=== PATIENT | male | born 1945 ===

== ENCOUNTER 2024-02-24 11:28 | Outpatient (AMB) | payer OTHER, SELFPAY ==
--- NOTE | 2024-02-24 11:28 | A.OFFPC_ITS ---
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 Intake Note: New patient visit Procurement Assistant Required: No Accompanied by: Daughter Allergies influenza vaccine Allergy (Unknown, Uncoded 02/24/24 11:35) Unknown nictone patches Allergy (Unknown, Uncoded 02/24/24 11:29) Rash Tobacco use date assessed: 02/24/24 Fall risk assessment: No Falls in past year Last assessed Fall Risk: 02/24/24 Dental Screening Dental Screen Date: 02/24/24 Did you have a dental visit in the last 12 months?: No Did you have a dental problem in the last 6 months where you did not have access to dental care?: No Was dental information given to patient?: Patient declined HPI HPI Comments History of Present Illness Details Patient is a 78-year-old male with a past medical history of prostate cancer diabetes, hypertension hyperlipidemia, anemia, depression presenting for follow-up. Accompanied by his daughter Cardiovascular: On amlodipine, metfoprolol, lisinopril, statin. Blood pressure is high today. He did not yet take his medications. Denies vision changes, headaches. Follows at [facility]. Last echo looked good. He has had episodes of AFib previously. DM: Generally well controlled. He continues on metformin 1000mg twice daily. On JACOB, statin. COPD: stable. Does not follow with pulmonary. No recent breathing issues History of prostate cancer-Follows with urology Colonoscopy 2022 in hospital TDap 2018 ROS CONSTITUTIONAL: Denies weight loss, fever and chills. HEENT: Denies changes in vision and hearing. RESPIRATORY: Denies SOB and cough. CV: Denies palpitations and CP GI: Denies abdominal pain, nausea, vomiting and diarrhea. : Denies dysuria and urinary frequency. MSK: Denies new myalgia and joint pain. SKIN: Denies rash and pruritus. NEUROLOGICAL: Denies headache PSYCHIATRIC: Denies recent changes in mood. PHYSICAL EXAM: GENERAL: Alert and oriented x 3. NAD EYES: EOMI. Anicteric. HENT: Moist mucous membranes. No scleral icterus. No cervical lymphadenopathy. LUNGS: Clear to auscultation bilaterally. CARDIOVASCULAR: Regular rate and rhythm. No murmur. No JVD. ABDOMEN: Soft, non-tender +bs EXTREMITIES: No edema. Non-tender. SKIN: No rashes or lesions. Warm. NEUROLOGIC: No focal neurological deficits. CN II-XII grossly intact PSYCHIATRIC: Cooperative. Appropriate mood and affect PFSH Surgical History H/O colonoscopy Family History Mother Diabetes Father Diabetes Brother Diabetes Sister Breast cancer Other HTN (hypertension) Heart disease Prostate cancer Stroke Social History (Updated 02/24/24 @ 11:48 by Lorraine Garay CMA) Housing: Apartment Alcohol intake: former Patient Tobacco Use Status: Current everyday Tobacco user Cigarette Packs Per Day: 1 Years Smoked: 69 e-Cigarette/Vaping Use: Never Used Second Hand Smoke Exposure: No service: No Current occupational status: retired Cognitive needs: No Hearing needs: No Vision needs: Yes (glasses) Questionnaire Thrive Questionnaire Date Thrive assessed: 02/20/24 I am a: Patient What is your living situation today?: I have a steady place to live Within the past 12 months, did you worry whether your food would run out before you got money to buy more?: Never true Do you have trouble paying for medicines?: No Do you have trouble getting transportation to medical appointments?: No Do you have trouble paying your heating and electricity bill?: No Do you have trouble taking care of your child, family member or friend?: No Do you have trouble with day-to-day activities such as bathing, preparing meals, shopping, managing finances, etc.?: No Are you currently unemployed and looking for a job?: No Are you interested in more education?: No Please select the resources that you would like help with: None Currently or been in a relationship where the following occur: No concerns reported THRIVE Score: 0 AUDIT C Alcohol Use Questionnaire (AUDIT-C) 1. How often do you have a drink containing alcohol?: Never 2. How many drinks containing alcohol do you have on a typical day when you are drinking?: 1 or 2 3. How often do you have six or more drinks on one occasion?: Less than monthly Total Score: 1 GABINO-7 AMB Questionnaire GABINO-7 Date GABINO - 7 assessed: 02/24/24 Feeling nervous, anxious, or on edge: 0 = Not at all Not being able to stop or control worryin = Not at all Worrying too much about different things: 0 = Not at all Trouble relaxin = Not at all Being so restless that it is hard to sit still: 0 = Not at all Becoming easily annoyed or irritable: 0 = Not at all Feeling afraid as if something awful might happen: 0 = Not at all Total GABINO-7 score (0-4 normal; 5-9 mild; 10-14 moderate; 15-21 severe): 0 Source: Developed by Drs. Carlos Giraldo, Marj Velasquez, Diomedes Last and colleagues, with an educational carmine from [employer]. GABINO-7 Assessment Billing GABINO-7 Assessment Tool: GABINO-7 Assessment 83777 Physical exam (Primary Care) Vital Signs: Last Vital Signs Pulse 77 02/24/24 11:39 BP 146/68 H 02/24/24 11:47 Pulse Ox 97 02/24/24 11:39 Oxygen Delivery Method Room Air 02/24/24 11:39 BMI result Body Mass Index 19.3 Tobacco/Smoking Status: Tobacco use Status Tobacco use date assessed 02/24/24 02/24/24 11:48 Patient Tobacco Use Status Current everyday Tobacco 02/24/24 11:48 e-Cigarette/Vaping Use Never Used 02/24/24 11:48 Thrive Assessment: Date of Thrive Assessment Date Thrive assessed 02/20/24 02/24/24 11:42 Currently or been in a relationship where the following occur: No concerns reported Coding Level of Care Code Est Pt Level 4 (56163) Complex EM visit Add On G2211 Diagnoses History of prostate cancer Z85.46 Type 2 diabetes mellitus with diabetic polyneuropathy, without long-term current use of insulin E11.42 Diabetes mellitus complication detail: with polyneuropathy Diabetes mellitus complication status: with neurologic complications 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 Doing well. (2) Type 2 diabetes mellitus: Code(s): E11.9 - Type 2 diabetes mellitus without complications Category: Medical Qualifiers: Diabetes mellitus complication detail: with polyneuropathy Diabetes mellitus complication status: with neurologic complications Diabetes mellitus nursing home insulin use: without nursing home use Qualified Code(s): E11.42 - Type 2 diabetes mellitus with diabetic polyneuropathy Plan: generally well controlled Continue annual eye exam On JACOB, ARB (3) COPD (chronic obstructive pulmonary disease): Code(s): J44.9 - Chronic obstructive pulmonary disease, unspecified Category: Medical Qualifiers: COPD type: unspecified COPD Qualified Code(s): J44.9 - Chronic obstructive pulmonary disease, unspecified Plan: Ok on prn albuterol. Does not use frequently (4) Anemia: Code(s): D64.9 - Anemia, unspecified Category: Medical Qualifiers: Anemia type: unspecified type Qualified Code(s): D64.9 - Anemia, unspecified Plan: Continues iron supplementation Orders: Orders Comprehensive Met. Panel 02/24/24 D64.9 - Anemia, unspecified, E11.9 - Type 2 diabetes mellitus without complications, J44.9 - Chronic obstructive pulmonary disease, unspecified, Z85.46 - Personal history of malignant neoplasm of prostate Lipid Panel 02/24/24 D64.9 - Anemia, unspecified, E11.9 - Type 2 diabetes mellitus without complications, J44.9 - Chronic obstructive pulmonary disease, unspecified, Z85.46 - Personal history of malignant neoplasm of prostate Hemoglobin A1c 02/24/24 D64.9 - Anemia, unspecified, E11.9 - Type 2 diabetes mellitus without complications, J44.9 - Chronic obstructive pulmonary disease, unspecified, Z85.46 - Personal history of malignant neoplasm of prostate Complete Blood Count Auto Diff 02/24/24 D64.9 - Anemia, unspecified, E11.9 - Type 2 diabetes mellitus without complications, J44.9 - Chronic obstructive pulmonary disease, unspecified, Z85.46 - Personal history of malignant neoplasm of prostate Referrals Urology Referral Z85.46 - Personal history of malignant neoplasm of prostate Medications: New lisinopril 40 mg PO DAILY 90 tabs 3RF amlodipine 5 mg PO DAILY 90 tabs 3RF metoprolol succinate ER 50 mg PO DAILY 90 tabs 3RF omeprazole 20 mg PO BID 180 caps 3RF trazodone 50 - 150 mg (1 - 3 x 50 mg) PO BEDTIME PRN 270 tabs 3RF insomnia metformin 1,000 mg PO BID 180 tabs 3RF ferrous sulfate 325 mg PO DAILY 90 tabs 3RF fluticasone propionate 110 mcg/actuation 1 puff inhalation BID 3 ea 3RF simvastatin 40 mg PO BEDTIME 90 tabs 3RF
[2024-02-24 11:39] VITALS: BP 152/76; PULSE 77; O2SAT 97; BMI 19.3
[2024-02-24 11:47] VITALS: BP 146/68
== END 2024-02-24 12:05 | disposition home or self-care (01) ==
PROVIDERS: PCP Internal Medicine; Visit Provider Internal Medicine
DX: Z85.46 Personal history of malignant neoplasm of prostate (principal); E11.42 Type 2 diabetes mellitus with diabetic polyneuropathy; J44.9 Chronic obstructive pulmonary disease, unspecified; D64.9 Anemia, unspecified

== ENCOUNTER → 2024-02-24 11:28 | Outpatient (BNVA) | payer OTHER, SELFPAY | PROVIDERS: Visit Provider Internal Medicine | DX: E11.42 Type 2 diabetes mellitus with diabetic polyneuropathy (principal); J44.9 Chronic obstructive pulmonary disease, unspecified; D64.9 Anemia, unspecified; I10 Essential (primary) hypertension; Z85.46 Personal history of malignant neoplasm of prostate; Z79.84 Long term (current) use of oral hypoglycemic drugs; Z79.899 Other long term (current) drug therapy | CPT/HCPCS: 96127; 99212 ==

== ENCOUNTER 2024-03-18 14:49 | Outpatient (REF) | payer OTHER, SELFPAY ==
[2024-03-18 18:19] LABS: Hemoglobin 12.8 g/dl (14.0-18.0); Imm Gran Abs Auto 0.02 X10*3/uL (0.00-0.03); Imm Gran Pct Auto 0.2 % (0.0-0.4); MANUAL DIFF FLAG SCAN; Mean Corpuscular HGB Conc 30.8 g/dl (31.0-36.0); SCAN SMEAR FLAG 1; White Blood Count 9.7 X10*3/uL (4.8-10.8)
[2024-03-18 18:20] LABS: Basophils Absolute Auto 0.1 X10*3/uL (0.0-0.2); Basophils Percent Auto 0.8 % (0-2); Eosinophils Absolute Auto 1.2 X10*3/uL (0.0-0.4); Eosinophils Percent Auto 12.4 % (0-4); Hematocrit 41.5 % (42.0-52.0); Lymphocytes Absolute Auto 4.1 X10*3/uL (1.2-4.9); Lymphocytes Percent Auto 41.6 % (20-40); Mean Corpuscular Volume 74.5 fL (80.0-98.0); Mean Platelet Volume 10.9 fL (9.4-12.4); Monocytes Absolute Auto 0.8 X10*3/uL (0.1-1.2); Monocytes Percent Auto 8.1 % (2-11); Neutrophils Absolute Auto 3.6 x10*3/uL (2.0-8.3); Neutrophils Percent Auto 36.9 % (45-73); Platelet Count 191 X10*3/uL (160-400); Red Blood Count 5.57 X10*6/uL (4.60-5.80); Red Cell Distribution Width 16.6 % (11.0-16.0)
[2024-03-18 18:22] LABS: PLT ABN DIST 1
[2024-03-18 18:27] LABS: SLIDE REVIEW VERIFIED
[2024-03-18 18:33] LABS: Alanine Aminotransferase 6 U/L (0-40); Albumin Level 3.9 g/dL (3.5-5.0); Alkaline Phosphatase 111 U/L (39-117); Anion Gap 10 (12-20); Aspartate Amino Transferase 13 U/L (5-37); Bilirubin Total 0.2 mg/dL (0.0-1.0); Blood Urea Nitrogen 18 mg/dL (9-16); Calcium 9.2 mg/dL (8.4-10.2); Carbon Dioxide 27 mmol/L (22-29); Chloride 108 mmol/L (96-108); Cholesterol 175 mg/dL (<200); Estimated Glomerular Filt Rate > 60; Glucose Random 172 mg/dL (60-115); HDL Cholesterol 43 mg/dL (>40); LDL Cholesterol Calculated 106 mg/dL (<100); Potassium 4.2 mmol/L (3.3-5.1); Sodium 141 mmol/L (135-145); Total Protein 7.6 g/dL (6.5-8.0); Triglycerides 134 mg/dL (<150)
[2024-03-18 18:34] LABS: Estimated Average Glucose 217 mg/dL; Hemoglobin A1C 245.3259 umol/L; Hemoglobin A1c % 9.2 % (<6.0); Total Hemoglobin (HGBA1C) 3177.7717 umol/L
== END 2024-03-18 14:50 | disposition home or self-care (01) ==
LOC: HO.WFDLDS 14:49
PROVIDERS: Visit Provider Internal Medicine
DX: E11.9 Type 2 diabetes mellitus without complications (principal); Z85.46 Personal history of malignant neoplasm of prostate; J44.9 Chronic obstructive pulmonary disease, unspecified; D64.9 Anemia, unspecified
CPT/HCPCS: 36415; 80053; 80061; 83036; 85025

== ENCOUNTER 2024-06-24 10:40 | Outpatient (REF) | payer OTHER, SELFPAY ==
[2024-06-24 14:42] LABS: Anion Gap 11 (12-20); Blood Urea Nitrogen 17 mg/dL (9-16); Calcium 9.1 mg/dL (8.4-10.2); Carbon Dioxide 27 mmol/L (22-29); Chloride 103 mmol/L (96-108); Estimated Glomerular Filt Rate > 60; Glucose Random 318 mg/dL (60-115); Potassium 4.2 mmol/L (3.3-5.1); Sodium 137 mmol/L (135-145)
== END 2024-06-24 10:41 | disposition home or self-care (01) ==
LOC: HO.WFDLDS 10:40
PROVIDERS: Visit Provider Nurse Practitioner Primary Care
DX: I10 Essential (primary) hypertension (principal)
CPT/HCPCS: 36415; 80048

== ENCOUNTER 2024-06-28 15:16 | Outpatient (AMB) | payer OTHER, SELFPAY ==
--- NOTE | 2024-06-28 15:32 | A.OFFPC_ITS ---
Vital Signs 06/28/24 15:34 06/28/24 15:42 Height 5 ft 2.99 in Weight 109 lb BMI 19.3 BP 168/82 H 164/76 H Blood Pressure Location Rt brachial Rt brachial Position Sitting Sitting Respiration 16 Pulse 70 Pulse Source Pulse Oximeter Pulse Oximetry (%) 98 Oxygen Delivery Method Room Air Intake Visit Reasons: medication non-compliance Intake Note: Medication follow up. 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 Accompanied by his daughter [facility] reached out as patient has been non compliant with medication regimen. BP has been high as such. He was noted to be self injecting insulin. Patient says forgets medication Cardiovascular: Prescribed amlodipine, lisinopril, statin. Denies vision changes, headaches. Follows at [facility]. Last echo looked good. History of AFib previously. DM: Generally well controlled though last A1C 9.2%. He is prescribed metformin 1000mg twice daily. Previously on insulin, jardiance. On JACOB, statin. COPD: stable. Does not follow with pulmonary. No recent breathing issues History of prostate cancer-Follows with urology. Appt upcoming in August Colonoscopy 2022 in hospital TDap 2018 ROS see HPI PHYSICAL EXAM: GENERAL: Alert and oriented x 3. NAD EYES: EOMI. Anicteric. HENT: Moist mucous membranes. No scleral icterus. No cervical lymphadenopathy. LUNGS: Clear to auscultation bilaterally. CARDIOVASCULAR: Regular rate and rhythm. No murmur. No JVD. ABDOMEN: Soft, non-tender +bs EXTREMITIES: No edema. Non-tender. SKIN: No rashes or lesions. Warm. NEUROLOGIC: No focal neurological deficits. CN II-XII grossly intact PSYCHIATRIC: Cooperative. Appropriate mood and affect [facility] Surgical History H/O colonoscopy Family History Mother Diabetes Father Diabetes Brother Diabetes Sister Breast cancer Other HTN (hypertension) Heart disease Prostate cancer Stroke Social History Housing: Apartment Alcohol intake: former Patient Tobacco Use Status: Current everyday Tobacco user Cigarette Packs Per Day: 1 Years Smoked: 69 e-Cigarette/Vaping Use: Never Used Second Hand Smoke Exposure: No service: No Current occupational status: retired Cognitive needs: No Hearing needs: No Vision needs: Yes (glasses) Questionnaire PHQ-9 Over the last 2 weeks, how often have you been bothered by any of the following problems? 1. Little interest or pleasure in doing things: several days 2. Feeling down, depressed, or hopeless: several days 3. Trouble falling or staying asleep, or sleeping too much: several days 4. Feeling tired or having little energy: several days 5. Poor appetite or overeating: not at all 6. Feeling bad about yourself - or that you are a failure or have let yourself or your family down: not at all 7. Trouble concentrating on things, such as reading the newspaper or watching television: not at all 8. Moving or speaking so slowly that other people could have noticed. Or the opp osite - being so fidgety or restless that you have been moving around a lot more than usual: not at all 9. Thoughts that you would be better off or of hurting yourself in some way: not at all Total score: 4 Depression Screening Interpretation: Negative Depression Screening Done: Yes 59709 - PHQ-9 Billing: Yes Source: Developed by Drs. Carlos Giraldo, Marj Velasquez, Diomedes Last and colleagues, with an educational carmine from [employer]. Thrive Questionnaire Date Thrive assessed: 06/28/24 I am a: Patient What is your living situation today?: I have a steady place to live Within the past 12 months, did the food you bought not last and you didn't have the money to get more?: Never true Within the past 12 months, did you worry whether your food would run out before you got money to buy more?: Never true Do you have trouble paying for medicines?: No Do you have trouble getting transportation to medical appointments?: No Do you have trouble paying your heating and electricity bill?: No Do you have trouble taking care of your child, family member or friend?: No Do you have trouble with day-to-day activities such as bathing, preparing meals, shopping, managing finances, etc.?: I choose not to answer this question Are you currently unemployed and looking for a job?: No Are you interested in more education?: No Please select the resources that you would like help with: None Currently or been in a relationship where the following occur: No concerns reported THRIVE Score: 0 AUDIT C Alcohol Use Questionnaire (AUDIT-C) 1. How often do you have a drink containing alcohol?: Monthly or less 2. How many drinks containing alcohol do you have on a typical day when you are drinking?: 1 or 2 3. How often do you have six or more drinks on one occasion?: Never Total Score: 1 GABINO-7 AMB Questionnaire GABINO-7 Date GABINO - 7 assessed: 02/24/24 Feeling nervous, anxious, or on edge: 0 = Not at all Not being able to stop or control worryin = Not at all Worrying too much about different things: 0 = Not at all Trouble relaxin = Several days Being so restless that it is hard to sit still: 0 = Not at all Becoming easily annoyed or irritable: 0 = Not at all Feeling afraid as if something awful might happen: 0 = Not at all Total GABINO-7 score (0-4 normal; 5-9 mild; 10-14 moderate; 15-21 severe): 1 Source: Developed by Drs. Carlos Giraldo, Marj Velasquez, Diomedes Last and colleagues, with an educational carmine from [employer]. Physical exam (Primary Care) Vital Signs: Last Vital Signs Pulse 70 06/28/24 15:34 Resp 16 06/28/24 15:34 BP 164/76 H 06/28/24 15:42 Pulse Ox 98 06/28/24 15:34 Oxygen Delivery Method Room Air 06/28/24 15:34 BMI result Body Mass Index 19.3 Tobacco/Smoking Status: Tobacco use Status Tobacco use date assessed 06/28/24 06/28/24 15:37 Patient Tobacco Use Status Current everyday Tobacco 06/28/24 15:32 e-Cigarette/Vaping Use Never Used 06/28/24 15:32 PHQ-9: PHQ-9 Score PHQ-9: Total score 4 07/03/24 10:48 Depression Screening Interpretation: Negative Thrive Assessment: Date of Thrive Assessment Date Thrive assessed 06/28/24 06/28/24 15:32 Currently or been in a relationship where the following occur: No concerns reported Coding Level of Care Code Est Pt Level 4 (26502) Diagnoses Non compliance w medication regimen Z91.148 Memory loss R41.3 Type 2 diabetes mellitus with diabetic polyneuropathy, without long-term current use of insulin E11.42 Diabetes mellitus complication detail: with polyneuropathy Diabetes mellitus complication status: with neurologic complications Diabetes mellitus care home insulin use: without termite control technician use Chronic obstructive pulmonary disease, unspecified COPD type J44.9 COPD type: unspecified COPD Additional Codes PHQ-9 - 92688 - PHQ-9 Billing: Yes ([id number]) Assessment & Plan Assessment & Plan (1) Non compliance w medication regimen: Code(s): Z91.148 - Patient's other noncompliance with medication regimen for other reason Category: Medical (2) Memory loss: Code(s): R41.3 - Other amnesia Category: Medical (3) Type 2 diabetes mellitus: Code(s): E11.9 - Type 2 diabetes mellitus without complications Category: Medical Qualifiers: Diabetes mellitus complication detail: with polyneuropathy Diabetes mellitus complication status: with neurologic complications Diabetes mellitus care home insulin use: without care home use Qualified Code(s): E11.42 - Type 2 diabetes mellitus with diabetic polyneuropathy (4) COPD (chronic obstructive pulmonary disease): Code(s): J44.9 - Chronic obstructive pulmonary disease, unspecified Category: Medical Qualifiers: COPD type: unspecified COPD Qualified Code(s): J44.9 - Chronic obstructive pulmonary disease, unspecified Plan Patient would benefit from in home PT, 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
[2024-06-28 15:34] VITALS: BP 168/82; PULSE 70; RESP 16; O2SAT 98; BMI 19.3
[2024-06-28 15:42] VITALS: BP 164/76
== END 2024-06-28 15:59 | disposition home or self-care (01) ==
LOC: HO.HMCFM 15:17
PROVIDERS: PCP Internal Medicine; Visit Provider Internal Medicine
DX: Z91.148 Patient's other noncompliance with medication regimen for other reason (principal); R41.3 Other amnesia; E11.42 Type 2 diabetes mellitus with diabetic polyneuropathy; J44.9 Chronic obstructive pulmonary disease, unspecified

== ENCOUNTER → 2024-06-28 15:16 | Outpatient (BNVA) | payer OTHER, SELFPAY | PROVIDERS: PCP Internal Medicine; Visit Provider Internal Medicine | DX: J44.9 Chronic obstructive pulmonary disease, unspecified (principal); I10 Essential (primary) hypertension; E78.5 Hyperlipidemia, unspecified; R41.3 Other amnesia; E11.42 Type 2 diabetes mellitus with diabetic polyneuropathy; Z91.148 Patient's other noncompliance with medication regimen for other reason; Z85.46 Personal history of malignant neoplasm of prostate | CPT/HCPCS: 96127; 99212 ==

== ENCOUNTER → 2024-07-29 11:08 | Outpatient (BNVA) | payer OTHER, SELFPAY | PROVIDERS: PCP Internal Medicine ==

== ENCOUNTER 2024-09-28 14:35 | Outpatient (AMB) | payer OTHER, SELFPAY ==
--- NOTE | 2024-09-28 14:39 | MHC.PC.OV ---
Vital Signs 09/28/24 14:46 09/28/24 14:54 Height 5 ft 2.99 in Weight 104 lb 2 oz BMI 18.4 BP 144/74 H 139/74 Blood Pressure Location Rt brachial Lt brachial Position Sitting Sitting Respiration 14 Pulse 65 Pulse Source Pulse Oximeter Temp 99.1 F Temp Source Oral Pulse Oximetry (%) 97 Oxygen Delivery Method Room Air Intake Visit Reasons: DM Intake Note: Diabetes follow up Insurance Business Analyst Required: No Accompanied by: Daughter Allergies influenza vaccine Allergy (Unknown, Uncoded 09/28/24 14:40) Unknown nictone patches Allergy (Unknown, Uncoded 09/28/24 14:40) Rash Medication List - Last Reconciled 09/28/24 by Xiomara Rodriguez MD albuterol sulfate 90 mcg/actuation (Ventolin HFA) 2 puffs inhalation Q6H PRN aspirin 1 tab PO DAILY empagliflozin (Jardiance) 10 mg PO QAM ferrous sulfate 325 mg PO DAILY fluticasone propionate 110 mcg/actuation 1 puff inhalation BID lisinopril 5 mg PO DAILY metoprolol succinate ER 12.5 mg PO DAILY simvastatin 40 mg PO BEDTIME trazodone 100 mg PO BEDTIME PRN Tobacco use date assessed: 06/28/24 Fall risk assessment: No Falls in past year Last assessed Fall Risk: 09/28/24 Dental Screening Dental Screen Date: 09/28/24 Did you have a dental visit in the last 12 months?: No Did you have a dental problem in the last 6 months where you did not have access to dental care?: No Was dental information given to patient?: Patient has dentist HPI HPI Comments History of Present Illness Details Patient is a 78-year-old male with a past medical history of prostate cancer diabetes, hypertension hyperlipidemia, anemia, depression presenting for follow-up. Accompanied by his daughter Cardiovascular: Saw cardiology in June,. They are updating echo. restarted metoprolol. On jardiance. lisinopril, statin. Denies vision changes, headaches. History of AFib previously. DM:A1C 9.2%. He is prescribed metformin 1000mg twice daily but had stopped it when he resumed jardiance. He will restart metformin. Off insulin as he was self injecting it. COPD: stable. Does not follow with pulmonary. No recent breathing issues History of prostate cancer on active surveillance-Follows with urology. Recently seen by Caron Alejandro Colonoscopy 2022 in hospital TDap 2018 ROS see HPI PHYSICAL EXAM: GENERAL: Alert and oriented x 3. NAD EYES: EOMI. Anicteric. HENT: Moist mucous membranes. No scleral icterus. No cervical lymphadenopathy. LUNGS: Clear to auscultation bilaterally. CARDIOVASCULAR: Regular rate and rhythm. No murmur. No JVD. ABDOMEN: Soft, non-tender +bs EXTREMITIES: No edema. Non-tender. SKIN: No rashes or lesions. Warm. NEUROLOGIC: No focal neurological deficits. CN II-XII grossly intact PSYCHIATRIC: Cooperative. Appropriate mood and affect PFSH Surgical History H/O colonoscopy Family History Mother Diabetes Father Diabetes Brother Diabetes Sister Breast cancer Other HTN (hypertension) Heart disease Prostate cancer Stroke Social History Housing: Apartment Alcohol intake: former Patient Tobacco Use Status: Current everyday Tobacco user Cigarette Packs Per Day: 1 Years Smoked: 69 e-Cigarette/Vaping Use: Never Used Second Hand Smoke Exposure: No service: No Current occupational status: retired Cognitive needs: No Hearing needs: No Vision needs: Yes (glasses) Questionnaire Thrive Questionnaire Date Thrive assessed: 06/28/24 I am a: Patient What is your living situation today?: I have a steady place to live Within the past 12 months, did the food you bought not last and you didn't have the money to get more?: Never true Within the past 12 months, did you worry whether your food would run out before you got money to buy more?: Never true Do you have trouble paying for medicines?: No Do you have trouble getting transportation to medical appointments?: No Do you have trouble paying your heating and electricity bill?: No Do you have trouble taking care of your child, family member or friend?: No Do you have trouble with day-to-day activities such as bathing, preparing meals, shopping, managing finances, etc.?: I choose not to answer this question Are you currently unemployed and looking for a job?: No Are you interested in more education?: No Please select the resources that you would like help with: None Currently or been in a relationship where the following occur: No concerns reported THRIVE Score: 0 AUDIT C Alcohol Use Questionnaire (AUDIT-C) 1. How often do you have a drink containing alcohol?: Monthly or less 2. How many drinks containing alcohol do you have on a typical day when you are drinking?: 1 or 2 3. How often do you have six or more drinks on one occasion?: Never Total Score: 1 GABINO-7 AMB Questionnaire GABINO-7 Date GABINO - 7 assessed: 02/24/24 Source: Developed by Drs. Carlos Giraldo, Marj Velasquez, Diomedes Last and colleagues, with an educational carmine from [employer]. Physical exam (Primary Care) Vital Signs: Last Vital Signs Temp 99.1 F 09/28/24 14:46 Pulse 65 09/28/24 14:46 Resp 14 09/28/24 14:46 BP 139/74 09/28/24 14:54 Pulse Ox 97 09/28/24 14:46 Oxygen Delivery Method Room Air 09/28/24 14:46 BMI result Body Mass Index 18.4 Tobacco/Smoking Status: Tobacco use Status Tobacco use date assessed 06/28/24 09/28/24 14:42 Patient Tobacco Use Status Current everyday Tobacco 09/28/24 14:55 e-Cigarette/Vaping Use Never Used 09/28/24 14:55 Thrive Assessment: Date of Thrive Assessment Date Thrive assessed 06/28/24 09/28/24 14:42 Currently or been in a relationship where the following occur: No concerns reported Results AMB Hemoglobin A1c AMB Hemoglobin A1c 9.2 % Last Edit by Lorraine Garay CMA on 09/28/24 14:59 Results Reviewed Results Reviewed: Laboratory Last Values Hgb A1c (Clinic) 9.2 % (4.0-6.0) H 09/28/24 14:56 Coding Level of Care Code Est Pt Level 4 (22017) Complex EM visit Add On G2211 Diagnoses Type 2 diabetes mellitus with diabetic polyneuropathy, without long-term current use of insulin E11.42 Diabetes mellitus superintendent terminal insulin use: without superintendent terminal use Diabetes mellitus complication status: with neurologic complications Diabetes mellitus complication detail: with polyneuropathy Chronic obstructive pulmonary disease, unspecified COPD type J44.9 COPD type: unspecified COPD Prostate cancer C61 Assessment & Plan Assessment & Plan (1) Type 2 diabetes mellitus: Code(s): E11.9 - Type 2 diabetes mellitus without complications Category: Medical Qualifiers: Diabetes mellitus superintendent terminal insulin use: without superintendent terminal use Diabetes mellitus complication status: with neurologic complications Diabetes mellitus complication detail: with polyneuropathy Qualified Code(s): E11.42 - Type 2 diabetes mellitus with diabetic polyneuropathy (2) COPD (chronic obstructive pulmonary disease): Code(s): J44.9 - Chronic obstructive pulmonary disease, unspecified Category: Medical Qualifiers: COPD type: unspecified COPD Qualified Code(s): J44.9 - Chronic obstructive pulmonary disease, unspecified (3) Prostate cancer: Comment: active surveillance. Caron Alejandro Code(s): C61 - Malignant neoplasm of prostate Category: Medical Plan 78 year old for follow up DM-uncontrolled. Increase jardiance to 25mg daily. Restart metformin. A1C in 3 months Insomnia-stable on trazodone BP is well controlled on current medication Urology follow up is utd for prostate cancer Orders: Orders Comprehensive Met. Panel 3 Months D64.9 - Anemia, unspecified, E11.42 - Type 2 diabetes mellitus with diabetic polyneuropathy Hemoglobin A1c 3 Months D64.9 - Anemia, unspecified, E11.42 - Type 2 diabetes mellitus with diabetic polyneuropathy Lipid Panel 3 Months D64.9 - Anemia, unspecified, E11.42 - Type 2 diabetes mellitus with diabetic polyneuropathy Microalbumin, Random (w Creat) 3 Months D64.9 - Anemia, unspecified, E11.42 - Type 2 diabetes mellitus with diabetic polyneuropathy AMB Hemoglobin A1c Today E11.42 - Type 2 diabetes mellitus with diabetic polyneuropathy Medications: New Jardiance (empagliflozin) 25 mg PO DAILY 90 tabs 3RF NS Changed From trazodone 50 - 150 mg (1 - 3 x 50 mg) PO BEDTIME PRN 270 tabs 3RF insomnia To trazodone 100 mg PO BEDTIME PRN Refilled metformin 1,000 mg PO BID 180 tabs 3RF Discontinued metoprolol succinate ER Discontinued Reason: Doctor's Order 25 mg PO DAILY
[2024-09-28 14:46] VITALS: BP 144/74; PULSE 65; RESP 14; TEMP 37.3; O2SAT 97; BMI 18.4
[2024-09-28 14:54] VITALS: BP 139/74
== END 2024-09-28 15:11 | disposition home or self-care (01) ==
LOC: HO.HMCFM 14:36
PROVIDERS: PCP Internal Medicine; Visit Provider Internal Medicine
DX: E11.42 Type 2 diabetes mellitus with diabetic polyneuropathy (principal); J44.9 Chronic obstructive pulmonary disease, unspecified; C61 Malignant neoplasm of prostate

== ENCOUNTER → 2024-09-28 14:35 | Outpatient (BNVA) | payer OTHER, SELFPAY | PROVIDERS: PCP Internal Medicine; Visit Provider Internal Medicine | DX: E11.42 Type 2 diabetes mellitus with diabetic polyneuropathy (principal); C61 Malignant neoplasm of prostate; I10 Essential (primary) hypertension; E78.5 Hyperlipidemia, unspecified; D64.9 Anemia, unspecified; F32.A Depression, unspecified; J44.9 Chronic obstructive pulmonary disease, unspecified | CPT/HCPCS: 83036; 99212 ==

== ENCOUNTER 2024-12-31 09:49 | Outpatient (REF) | payer OTHER, SELFPAY ==
--- OUTSIDE RECORDS SUMMARY | 2024-12-31 10:53 | XMS_ITS | Patient Health Record ---
Author Organization [facility] Address [address] [place] [address] Care Team Providers Care Die Cutter Operator Name Role Phone Xiomara Quintanilla MD Primary Care Provider Margarito Nguyen Unavailable [phone] Allergies No Known Allergies Results Component Value Reference Range Notes HEMOGLOBIN A1C (GLYCOHEMOGLO BIN) Reviewed date:07/28/2024 01:16:32 PM Interpretation: Performing Lab: Notes/Report: HEMOGLOBIN A1C % (HH) 9.2 HEMOGLOBIN A1C (GLYCOHEMOGLO BIN) Reviewed date:10/27/2024 02:53:45 PM Interpretation: Performing Lab: Notes/Report: HEMOGLOBIN A1C % (HH) 9.2 Reason For Referral Diagnosis 1 Pain in unspecified foot (M79.673) Referring Provider First Name Xiomara Referring Provider Last Name Socorro Referring Provider Speciality Endocrinol ogy Referred Organization [facility] Mike Referred Provider Margarito Duffy Referred Address [address] [facility],[place], [place],[address], Referred Provider Specialty Podiatry Referral Priority Routine Medications Medication SIG (Take, Route, Frequency, Duration) Notes Start Date End Date Status Aspir-81 Active Jardiance 25 MG 1 tablet in the morn ing Oral Once a day; Duration: 90 days Active Metoprolol Succinate 25 MG 1 capsule Once a day Active Ketoconazole 2 % 1 application Apply a thin layer to externally to feet, even between toes Twice a day; Duration: 30 days Active Simvastatin 40 MG Oral; Duration: 90 Days Active Lisinopril 5 MG Oral; Duration: 90 Days Active Fluticasone Propionate HFA 110 MCG/ACT Inhalation; Duration: 60 Days Active FeroSul 325 (65 Fe) MG Oral; Duration: 90 Days Active Extra Depth Orthopedic Shoes, (1) Pair With (3) Pair Custom Heat Molded Multidensity Innersoles Dx: NIDDM/PVD(E11.51), Hammertoe Foot Deformity(M20.41,M20.42), Preulcerative Skin Lesion(s)(L85.1) Wear Daily; Duration: 365 days 07/28/2024 Active traZODone HCl 50 MG 2 tablets Once a day Active metFORMIN HCl 1000 MG 1 tablet with a me al Orally twice a day Active Immunizations Vaccine Route Administration Date Status Comme nts Influenza Unknown 10/27/2024 Refused Social History Tobacco Use: Social History Observation Description Date Details (start date - stop date) Current Smoker [birth year]/06/1964 - NA Tobacco use other than smoking: Question Answer Notes Are you an other tobacco user? No Tobacco Control (Standard) Question Answer Notes Tobacco use: Current smoker When did you start smoking? 07/06/1964 How many cigarettes a day do you smoke? 6-10 How soon after you wake up d o you smoke your first cigarette? 31-60 minutes Are you interested in quitting? Not ready to mat t Additional Findings: Tobacco user Light cigarett e smoker (1-9 cigs/day) AUDIT-C (Standard) Question Answer Notes Did you have a drink contain ing alcohol in the past year? Yes How often did you have a dri nk containing alcohol in the past year? Monthly or less (1 point) How many drinks did you have on a typical day when you were drinking in the past year? Declined to specify (0 point) How often did you have six o r more drinks on one occasion in the past year? Declined to specify (0 point) Points 1 Interpretation Negative Problems Problem Type SNOMED Code ICD Code Onset Dates Problem Status W/U Status Risk Notes Problem Acquired hammer toe of right foot (7416271757932 105) Other hammer toe(s) (acquired), right foot (M20.41) Active confirmed Problem Type 2 diabetes mellitus with peripheral angiopathy (539177620) Type 2 diabetes mellitus with diabetic peripheral angiopathy without gangrene (E11.51) Active confirmed Q7(A), Q8(2B), Q9(1B,2C) Problem Acquired hammer toe of left foot (2760069862652 103) Other hammer toe(s) (acquired), left foot (M20.42) Active confirmed Vital Signs Blood pressure diastolic 74 mm Hg 10/27/2024 Height 5ft 2.5in in 10/27/2024 Blood pressure systolic 144 mm Hg 10/27/2024 Weight 104 lbs 10/27/2024 BMI 18.72 kg/m2 10/27/2024 Procedures Procedure Date Ordered Date Performed Result Body Sit e 26681-MVPKCWW NAIL, 6 OR MORE 07/28/2024 N/A 99655-OZFR SKIN LESIONS, 2 TO 4 07/28/2024 N/A 12226-RYLVAOU NAIL, 6 OR MORE 10/27/2024 N/A 07519- I&D ABSCESS-COMPLICATED,MULTI 10/27/2024 N/A 78813-MYTA SKIN LESIONS, 2 TO 4 10/27/2024 N/A Encounters Encounter Location Date Provider Diagnosis [address] [address] 07/28/2024 Margarito Duffy Type 2 diabetes mellitus with diabetic peripheral angiopathy without gangrene E11.51 ; Other hammer toe(s) (acquired), right foot M20.41 ; Tinea unguium B35.1 ; Pain in right toe(s) M79.674 ; Pain in left toe(s) M79.675 and Other hammer toe(s) (acquired), left foot M20.[address] [address] 10/27/2024 Margarito Duffy Type 2 diabetes mellitus with diabetic peripheral angiopathy without gangrene E11.51 ; Tinea unguium B35.1 ; Pain in right toe(s) M79.674 ; Pain in left toe(s) M79.675 ; Abscess of toe of left foot L02.612 and Tinea pedis of both feet B35.[address] [facility] [address] 04/30/2024 Margarito Duffy [facility] [address] 07/07/2024 Margarito Duffy Assessments Encounter Date Diagnosis (ICD Code) Assessment Notes Treatment Notes Treatment Clinical Notes Section Notes 07/28/2024 Other hammer toe(s) (acquired), right foot (ICD-10 - M20.41) Patient Educated with: DIABETIC FOOT CARE INSTRUCTIONS.p df (DIABETIC FOOT CARE INSTRUCTIONS.p df) 07/28/2024 Type 2 diabetes mellitus with diabetic peripheral angiopathy without gangrene (ICD-10 - E11.51) Q7(A), Q8(2B), Q9(1B,2C) 10/27/2024 Type 2 diabetes mellitus with diabetic peripheral angiopathy without gangrene (ICD-10 - E11.51) Q7(A), Q8(2B), Q9(1B,2C) 10/27/2024 Tinea unguium (ICD-10 - B35.1) 10/27/2024 Pain in right toe(s) (ICD-10 - M79.674) 07/28/2024 Tinea unguium (ICD-10 - B35.1) 10/27/2024 Pain in left toe(s) (ICD-10 - M79.675) 07/28/2024 Pain in right toe(s) (ICD-10 - M79.674) 10/27/2024 Abscess of toe of left foot (ICD-10 - L02.612) Patient Educated with: WOUND CARE INSTRUCTIONS.p df (WOUND CARE INSTRUCTIONS.p df) 07/28/2024 Pain in left toe(s) (ICD-10 - M79.675) 07/28/2024 Other hammer toe(s) (acquired), left foot (ICD-10 - M20.42) 10/27/2024 Tinea pedis of both feet (ICD-10 - B35.3) Patient Educated with: ATHELETE .pdf (ATHELETE .pdf) 10/27/2024 Other Plan Of Treatment Pending Test Test Name Order Date 69515-RRFTPSG NAIL, 6 OR MORE 07/28/2024 73379-JZSSLCW NAIL, 6 OR MORE 10/27/2024 64627- I&D ABSCESS-COMPLICATED,MULTI 75419-AVVE SKIN LESIONS, 2 TO 4 10/28/19 25 37730-AOUK SKIN LESIONS, 2 TO 4 07/29/19 25 Next Appt Details Provider Name:Margarito Duffy , 01/26/2025 02:45:00 PM, [address] [facility], [address], [place], [address], Insurance Providers Payer Name Payer Address Payer Phone Subscriber Number Group Number Insured Name Patient Relationship to Insured Coverage Start Date Coverage End Date [facility] [address] [place] [phone] [id number] Nico Bai Self - patient is the insured Medical (General) History Medical History History ICD Code Anemia Anxiety Asthma Back,Hip,and Knee pain Cancer Cataracts Diabetic Gall bladder problems Headaches/Migraines Heart disease High Blood Pressure Lung disease Numbness Reflux ( GERD) Sciatica sinusitis Hypercholesterolemia Surgical History Surgery Date(Month/Year) lump removal (head) stuck finger
--- OUTSIDE RECORDS SUMMARY | 2024-12-31 10:53 | XMS_ITS | Clinical Summary ---
Author Organization [address] [place] [address] [place] [phone] Phone Care Team Providers Care Aerial Advertiser Name Role Phone Xiomara Rodriguez MD Primary Care Provider Allergies Active Allergy Reactions Criticality Noted Date Comments Flu Virus Vaccine Tv 2015- (18 Yr And Up),Recomb Hives,Itching 10/02/2012 Nicotine Hives 10/02/2012 Nicotine patches Medications aspirin 81 mg EC tablet Take 1 tablet (81 mg total) by mouth 1 (one) time each day. 90 tablet 1 06/24/2024 Active metoprolol succinate (TOPROL-XL) 25 mg 24 hr tablet Take 0.5 tablets (12.5 mg total) by mouth 1 (one) time each day. Do not crush or chew. 90 each 1 06/24/2024 6 Active lisinopriL (PRINIVIL,ZESTR IL) 5 mg tablet Take 1 tablet (5 mg total) by mouth 1 (one) time each day. 90 each 1 07/22/2024 6 Active empagliflozin (Jardiance) 10 mg tablet Take 1 tablet (10 mg total) by mouth 1 (one) time each day in the morning. 90 tablet 1 07/22/2024 Active simvastatin (ZOCOR) 40 mg tablet Take 1 tablet (40 mg total) by mouth at bedtime. 90 tablet 1 07/22/2024 Active Active Problems Problem Noted Date Diagnosed Date Anemia 06/09/2024 Asthma 06/09/2024 CAD (coronary artery disease) 06/09/2024 Overview (06/09/2024): -Cardiac cath in 2005 showing a chronically occluded circumflex with 40% distal left main stenosis, multiple nonobstructive lesions in the LAD and RCA with an ejection fraction of 25% and PA pressures at the time of 75/34 mmHg with a wedge of 33 mmHg-managed medically -Subsequent pharmacologic nuclear stress test in June 2015 shows infarct of the inferobasal and inferolateral whipple without ischemia with EF 41% -October 2021 abnormal regadenoson testing: no chest pain no EKG changes. Imaging revealed a small, mild infarct of the apical lateral and mid inferolateral whipple, no ischemia, calcifications noted in the LAD territory, gated imaging showed hypokinesis of the inferolateral wall with overall preserved systolic function with normal ejection fraction of 62% Last Assessment & Plan: No clear anginal symptoms. Continue current metoprolol, simvastatin, baby aspirin. Assessment & Plan (07/22/2024 8:17 AM EDT): No new anginal symptoms at the appointment today. Continue metoprolol, statin, baby aspirin. Denies chest pain, pressure, shortness of breath, dyspnea exertion, dizziness, lightheadedness, presyncope or syncope. The patient denies palpitations, peripheral edema, abdominal distention, PND or orthopnea. There have been no falls or cardiac related hospitalizations since the last office visit. Instructed to call 911 or go to the emergency room should the patient begin to experience chest pain or pressure lasting greater than 10 minutes does not resolve with rest. Assessment & Plan (06/24/2024 9:27 AM EDT): Patient has no clear anginal symptoms at the appointment today. However he does report living a fairly sedentary lifestyle. Going to update an echocardiogram. I am also going to restart him on his metoprolol, simvastatin, baby aspirin. Depression 06/09/2024 Prostate cancer (CMS/HCC V24, CMS/HCC V28) 06/09 Sinus bradycardia 06/09/2024 Overview (06/09/2024): - Holter monitor in 2020 showing sinus bradycardia with average heart rate 56 bpm, frequent APCs representing 5.1% of all beats, occasional atrial pairs and atrial bigeminy and trigeminy, frequent PVCs but representing only 0.6% of all beats with rare ventricular couplets, no pauses, no high-grade AV block, no symptoms Last Assessment & Plan: In light of recent syncopal episode no clear explanation, will likely pursue ILR in the longer term but will do echo in the short-term Tubular adenoma of colon 06/09/2024 Syncope 03/05/2023 Overview (06/09/2024): - Had a syncopal episode in February [address]-felt lightheaded and then suddenly passed out and an onlooker called EMS-patient did not go to the hospital-at my visit with him in February 2023, I decreased his amlodipine from 5 mg to 2.5 mg because of high suspicion for orthostatic hypotension/vasovagal phenomenon; his vital signs during that visit showed orthostatic hypotension from lying to sitting - Initially, given his history I did consider putting an ILR in however over the subsequent year patient did not have any further episodes of lightheadedness or syncope-we have held off Last Assessment & Plan: In retrospect, sounds more clearly orthostatic in nature especially given patient's unfavorable habits including ongoing tobacco use, lack of adequate oral hydration, excessive caffeine use, and being on antihypertensive drugs. Interestingly, his hypertension is now poorly controlled and he has gone back up on his amlodipine to 5 mg but still has not experienced recurrent orthostatic symptoms. Continue with behavioral modifications including slow postural changes. I stressed the immense importance of adequate oral hydration, avoidance of excess caffeine, and SMOKING CESSATION! Ischemic cardiomyopathy 02/14/2021 Overview (06/09/2024): -See cardiac cath above -Mixed of ischemic and nonischemic pathology -With medical management, he supposedly normalized his ejection fraction in May 2019 19-50 5 to 60% - However, he had a subsequent echocardiogram (the most recent one) on 01/18/2021 showing mild septal wall thickening with abnormal thinning of the posterior wall, hypokinesis of the basal to mid inferior and inferoseptal whipple, akinesis to dyskinesis of the basal inferolateral wall with overall moderate, segmental LV systolic dysfunction with ejection fraction 40 to 45%, grade 2 diastolic dysfunction consistent with increased left atrial pressure, normal RV size and systolic function, moderate mitral regurgitation with effective regurgitant orifice by Pisa method of 0.23 cm and a regurgitant volume of 49 mL per beat-I was unable to compare images with the prior echo because it was done at a different location with different software. -Echo done March 14, 2023 showed ejection fraction having improved slightly from his prior study in 2020 and all other findings unchanged. LVEF 45 to 50%. Akinesis of the basal to mid inferior and inferolateral whipple. Moderate 2+ mitral regurgitation. No mitral stenosis.Mildly thickened and apically tented mitral valve leaflets. Restricted leaflet motion is present. PISA images were not optimal. - Given improvement in EF with only beta-irina and JACOB inhibitor, we have not escalated GDMT; we have also held off because of recurrent UTIs with regards to SGLT2 inhibitor, and because of orthostatic hypotension/syncope Last Assessment & Plan: EF on recent echo in February actually showed some improvement into the mildly reduced range. Continue current regimen of metoprolol 50 mg daily, lisinopril 40 mg daily, patient is hypovolemic on exam if anything and therefore does not require loop diuretics or diuretics in general, would hold off on escalation of GDMT for the same reason for now, patient has NYHA class I symptoms at baseline but is limited by many other comorbidities Assessment & Plan (07/22/2024 8:17 AM EDT): Patient has been utilizing the metoprolol, Jardiance with good effect. I am going to add an JACOB inhibitor, lisinopril 5 mg p.o. daily. Goal will be to also add in spironolactone in future appointments. Patient is getting echocardiogram updated next month. He has been doing a good job of avoiding sodium. Can continue to weigh himself every morning report to the office if he gains more than 2 pounds in a day or 5 pounds in a week. Assessment & Plan (06/24/2024 9:29 AM EDT): Will update an echocardiogram. Patient is going to restart his metoprolol 12.5 mg daily extended release. Goal will also be to reinitiate an JACOB inhibitor as he did well with that previously. Instructed to call 911 or go to the emergency room should the patient begin to experience chest pain or pressure lasting greater than 10 minutes does not resolve with rest. I have asked the patient to limit his sodium consumption. To try to weigh himself every day and call the office if he gains more than 2 pounds in a day or 5 pounds in a week. Orders: Transthoracic echocardiogram (TTE) complete with PRN contrast, bubble, strain, and 3D order panel; Future Nonrheumatic mitral valve regurgitation 02/15/20 21 Assessment & Plan (07/22/2024 8:17 AM EDT): The patient is scheduled to have an echocardiogram updated next month. Sounds okay on physical exam. Spinal stenosis, multilevel 04/11/2016 Onychomycosis 02/22/2016 Diabetes mellitus type 2 wit h neurological manifestations (CMS/HCC V24, CMS/HCC V28) 05/11/2015 Microalbuminuria 01/30/2015 Type 2 diabetes mellitus wit h diabetic nephropathy (CMS/HCC V24, CMS/HCC V28) 01/30/2015 Insomnia 01/31/2014 Hypercholesteremia 10/02/2012 Overview (06/09/2024): Last Assessment & Plan: Continue high intensity simvastatin. Assessment & Plan (07/22/2024 8:17 AM EDT): I am going to update a lipid panel. Patient has been utilizing atorvastatin. Primary hypertension 10/02/2012 Overview (06/09/2024): Last Assessment & Plan: Suboptimally controlled but in the setting of coexisting orthostasis. Typically in the setting, the best tolerated agents are amlodipine and ARB. He appears to be tolerating increase in amlodipine but has not had enough data points for us to determine if it is enough. I asked him to check his blood pressures daily-but at different times of the day. I instructed him on the proper technique-I instructed him to do it in a resting state for at least 10 minutes of rest, with arms at or close to heart level, legs uncrossed and feet on the ground. Patient verbalized understanding of this information. He will bring in a log of his blood pressures to his next PCP visit. If blood pressures are still suboptimally controlled, can consider trial of slightly increased amlodipine 7.5 mg daily. I hesitate to back down on GDMT but may consider switching lisinopril which was not as well-tolerated and small trials for orthostasis to ARB which was better tolerated. Assessment & Plan (07/22/2024 8:17 AM EDT): Will add in lisinopril 5 mg p.o. daily. I have discontinued the patient's amlodipine. Will have patient continue to check his blood pressure measurements at home. Would like him to call back with values in 1 week after initiation of the medication. Assessment & Plan (06/24/2024 9:27 AM EDT): Patient's blood pressure is elevated, has discontinued all his medications over the past couple months on his own accord. I am going to be restarting him on metoprolol 12.5 mg extended release. I have asked patient to take blood pressure measurements at home 2 hours after he takes his medications. I also gave him some samples of Jardiance which he was going to wait to take until he gets his BMP drawn and I can check his kidney function. He does have history of UTIs so he would have to watch this closely after initiation. Orders: Basic metabolic panel; Future Immunizations Name Administration Dates Next Due Influenza trivalent, 0.5mL (Fluad) 65yo and olde r 01/31/2020,03/26/2019 Moderna SARS-CoV-2 COVID-19, mRNA, LNP-S, preservative free 04/15/2021 Pfizer SARS-CoV-2 COVID-19, mRNA, LNP-S, preservative free 08/19/2020,07/29/2020 Pneumococcal conjugate 13 va lent (Prevnar 13, PCV13) 2mo and older 01/30/2016 Pneumococcal polysaccharide 23 valent (Pneumovax 23) 2yo and older 05/10/2014 Td Tetanus diptheria (Tdvax) 7yo and older 11/27 Surgical History Surgery Date Site/Laterality Comments EYE SURGERY 03/2012 PROCEDURE: HISTORICAL EYE SURGERY Medical History Medical History Date Comments Asthma DX:Asthma Heart disease DX:Heart disease Diabetes mellitus, type 2 ([facility] V24, [facility] V28) DX:Diabetes mellitus, type 2 (HCC) HTN (hypertension) DX:HTN (hyper tension) Stroke ([facility] V24, [facility] V28) DX:Stroke (HCC) Prostate cancer ([facility] V24 , [facility] V28) DX:Prostate cancer ([facility]); COMMENT: Dr. Pizarro Depression DX:Depression Anemia DX:Anemia Joint problem DX:Joint problem Type 2 diabetes mellitus wit h diabetic nephropathy ([facility] V24, [facility] V28) 01/30/2015 DX:Type 2 diabe nolvia mellitus with diabetic nephropathy ([facility]) Proteinuria 01/30/2015 DX:Proteinuria Tubular adenoma of colon DX:Tubu lar adenoma of colon Sinus bradycardia DX:Sinus mercedes cardia CAD (coronary artery disease) DX :CAD (coronary artery disease); COMMENT: triple-vessel disease documented by angiography 2005, Spinal stenosis, multilevel 04/11/2016 DX:S vasyl stenosis, multilevel Hypercholesteremia 10/02/2012 DX:Hyperchole steremia Family History Medical History Relation Name Comments Diabetes Brother 1 Diabetes Brother 2 Diabetes Brother 3 Diabetes Brother 4 Diabetes Father Stroke Father Diabetes Mother Heart attack Mother Stroke Mother Diabetes Sister 1 Breast cancer Sister 2 Relation Name Status Comments Brother 1 Brother 2 Brother 3 Brother 4 Father Maternal Grandfather Maternal Grandmother Mother Paternal Grandfather Paternal Grandmother Sister 1 Sister 2 Social History Tobacco Use Types Packs/Day Years Used Date Smoking Tobacco: Every Day Cigarettes Smokeless Tobacco: Never Alcohol Use Standard Drinks/Week Comments Yes 0 (1 standard drink = 0.6 oz pur e alcohol) socially Sex and Gender Information Value Date Recorded Sex Assigned at Not on file Legal Sex Male 4:56 AM EST Gender Identity Not on file Sexual Orientation Not on file Obstetrics History Last Filed Vital Signs Vital Sign Reading Time Taken Comments Blood Pressure 166/74 08/16/2024 3:02 PM EDT Pulse 68 07/22/2024 7:53 AM EDT Temperature - - Respiratory Rate - - Oxygen Saturation 98% 07/22/2024 7:53 AM EDT Inhaled Oxygen Concentration - - Weight 47.6 kg (105 lb) 08/16/2024 3:02 PM EDT Height 157.5 cm (5' 2 ) 08/16/2024 3:02 PM EDT Body Mass Index 19.2 08/16/2024 3:02 PM EDT Plan of Treatment Health Maintenance Due Date Last Done Comments Diabetes: Annual Foot Exam 10/04/1955 Diabetes: Annual Retina Eye Exam 10/04/1955 Zoster Vaccines (1 of 2) 1964 RSV Immunization Adult Patients (1 - 1-dose 75+ series) 2020 Falls Risk Assessment 03/16/2022 Medicare Annual Wellness Visit 03/16/2022 Social Influencers of Health Screening 03/16/2022 Diabetes: Blood Sugar Control Test (HGBA1C) 03/21/2022 08/13/2021 Diabetes: Annual Urine Albumin-Creatinine Ratio (uACR) 08/13/2022 08/13/2021 Diabetes: Annual GFR (Glomerular Filtration Rate) 08/13/2022 08/13/2021 Hypertension/CHF/CAD Annual BMP Blood Test 08/13/2022 08/13/2021 Depression Screening 04/07/2024 COVID-19 Vaccine ( season) 2024 04/15/2021, 08/19/2020, 07/29/2020 Influenza Vaccine (#1) 2024 , 03/26/2019, 07/09/2010, Additional history exists Cholesterol Screening (Lipid Panel) 08/13/2026 08/13/2021 DTaP,Tdap,and Td Vaccines (2 - Td or Tdap) 11/28/2027 11/27/2017 Colorectal Cancer Screening: Colonoscopy 09/03/2028 09/03/2018 Pneumococcal Vaccine: 50+ Years Completed 01/30/2016, 05/10/2014, 01/23/2009 Hepatitis C Screening Completed 04/11/2016 HIB Vaccines Aged Out No longer eligi ble based on patient's age to complete this topic HPV Vaccines Aged Out No longer eligi ble based on patient's age to complete this topic Hepatitis A Vaccines Aged Out No long er eligible based on patient's age to complete this topic Hepatitis B Vaccines Aged Out No long er eligible based on patient's age to complete this topic IPV Vaccines Aged Out No longer eligi ble based on patient's age to complete this topic MMR Vaccines Aged Out No longer eligi ble based on patient's age to complete this topic Meningococcal ACWY Vaccine Aged Out N o longer eligible based on patient's age to complete this topic Meningococcal B Vaccine Aged Out No l onger eligible based on patient's age to complete this topic RSV Immunization Patients Under 20 months Aged Out No longer eligible based on patient's age to complete this topic Varicella Vaccines Aged Out No longer eligible based on patient's age to complete this topic Procedures Procedure Name Priority Date/Time Associated Diagnosis Comments URINE ALBUMIN CREATININE RATIO Routine 08/13/2021 ANNUAL BMP BLOOD TEST Routine 08/13/2021 HEMOGLOBIN A1C Routine 08/13/2021 LIPID PANEL Routine 08/13/2021 COLONOSCOPY Routine 09/03/2018 HEPATITIS C SCREENING Routine 04/11/2016 from Last 3 Months or Most Recently Relevant to Health Maintenance Results * Urine Albumin Creatinine Ratio (08/13/2021) Pathologist [facility] Urine Albumin Creatinine Ratio Abstracted Historical Provider HEALTH MAINTENANCE Final Result * Annual BMP Blood Test (08/13/2021) Pathologist [facility] Annual BMP Blood Test Abstracted Historical Provider HEALTH MAINTENANCE Final Result * (ABNORMAL) Hemoglobin A1c (08/13/2021) Pathologist [facility] Hemoglobin A1C 12.6(A) <=6.5 % Blood Venous blood specimen / Unknown Historical Provider LAB BLOOD ORDERABLES Missy l Result * (ABNORMAL) Lipid panel (08/13/2021) [facility] LDL/HDL Ratio 3 0 - 4 Triglycerides 209(A) 0 - 150 mg/dL Cholesterol 141 0 - 200 mg/dL HDL 46 >=40 mg/dL LDL Cholesterol 54 0 - 100 mg/dL Blood Venous blood specimen / Unknown Historical Provider LAB BLOOD ORDERABLES Missy l Result * Colonoscopy (09/03/2018) [facility] Colonoscopy Abstracted, No Interpretation Anatomical Region Laterality Modality Other [facility] Provider HEALTH MAINTENANCE Final Result * Hepatitis C Screening (04/11/2016) [facility] Hepatitis C Screening Abstracted [facility] Provider HEALTH MAINTENANCE Final Result from Last 3 Months or Most Recently Relevant to Health Maintenance Insurance [employer] Advance Directives Documents on File Type Date Recorded Patient Ruling Machine Feeder Expl anation Health Care Decision (hx) 06/26/2017 AD MARRERO DIRECTIVE Health Care Decision (hx) 06/26/2017 AD MARRERO DIRECTIVE Health Care Decision (hx) 06/26/2017 AD MARRERO DIRECTIVE Health Care Decision (hx) 06/26/2017 AD MARRERO DIRECTIVE Health Care Decision (hx) 06/26/2017 AD MARRERO DIRECTIVE Health Care Decision (hx) 06/26/2017 AD MARRERO DIRECTIVE Health Care Decision (hx) 06/26/2017 AD MARRERO DIRECTIVE Health Care Decision (hx) 06/26/2017 AD MARRERO DIRECTIVE Care Teams Aerial Advertiser Relationship Specialty Start Date End Date Xiomara Rodriguez MD [address] [place], [place] [id number] PCP - General Internal Medicine 06/21/24
[2024-12-31 11:59] LABS: Hemoglobin A1C 208.7696 umol/L; Total Hemoglobin (HGBA1C) 3745.9525 umol/L
[2024-12-31 12:06] LABS: Alanine Aminotransferase 10 U/L (0-40); Albumin Level 4.4 g/dL (3.5-5.0); Alkaline Phosphatase 103 U/L (39-117); Anion Gap 10 (12-20); Aspartate Amino Transferase 19 U/L (5-37); Blood Urea Nitrogen 15 mg/dL (9-16); Calcium 9.3 mg/dL (8.4-10.2); Carbon Dioxide 29 mmol/L (22-29); Chloride 106 mmol/L (96-108); Cholesterol 172 mg/dL (<200); Estimated Glomerular Filt Rate > 60; HDL Cholesterol 49 mg/dL (>40); Potassium 4.1 mmol/L (3.3-5.1); Sodium 141 mmol/L (135-145); Total Protein 7.5 g/dL (6.5-8.0); Triglycerides 142 mg/dL (<150)
[2024-12-31 12:51] LABS: Microalbum/Creatinine Ratio Ur 264.4 ug/mg cr (<30)
== END 2024-12-31 09:50 | disposition home or self-care (01) ==
LOC: HO.WFDLDS 09:49
PROVIDERS: Visit Provider Internal Medicine
DX: E11.42 Type 2 diabetes mellitus with diabetic polyneuropathy (principal); D64.9 Anemia, unspecified
CPT/HCPCS: 36415; 80053; 80061; 82043; 82570; 83036

== ENCOUNTER 2025-01-04 09:11 | Outpatient (AMB) | payer OTHER, SELFPAY ==
--- NOTE | 2025-01-04 09:26 | MHC.PC.OV ---
Vital Signs 01/04/25 09:29 Height 5 ft 2.99 in Weight 97 lb 6 oz BMI 17.3 BP 114/70 Blood Pressure Location Lt brachial Position Sitting Respiration 14 Pulse 63 Pulse Source Pulse Oximeter Temp 98.1 F Temp Source Oral Pulse Oximetry (%) 98 Oxygen Delivery Method Room Air Intake Visit Reasons: dm Intake Note: Diabetes follow up Customer Experience Specialist Required: No Allergies influenza vaccine Allergy (Unknown, Uncoded 01/04/25 09:29) Unknown nictone patches Allergy (Unknown, Uncoded 01/04/25 09:29) Rash Tobacco use date assessed: 01/04/25 Fall risk assessment: No Falls in past year Last assessed Fall Risk: 01/04/25 Dental Screening Dental Screen Date: 09/28/24 HPI HPI Comments History of Present Illness Details Patient is a 79-year-old male with a past medical history of prostate cancer diabetes, hypertension hyperlipidemia, anemia, depression presenting for follow-up. Accompanied by his daughter Cardiovascular: Follows with [facility]. On metoprolol, lisinopril, simvastatin, jardiance. Denies vision changes, headaches. History of AFib previously. DM:A1C 7.3 from 9.2%. On metformin 1000mg twice daily and jardiance. Off insulin as he was self injecting it and sometimes duplicating injections COPD: stable. Does not follow with pulmonary. No recent breathing issues. +weight loss -10 pounds in the past years. Continues to smoke History of prostate cancer on active surveillance-Follows with urology. Last visit Caron Alejandro-upcoming visit in February Colonoscopy 2022 in hospital TDap 2018 Flu shot today ROS see HPI PHYSICAL EXAM: GENERAL: Alert and oriented x 3. NAD EYES: EOMI. Anicteric. HENT: Moist mucous membranes. No scleral icterus. No cervical lymphadenopathy. LUNGS: Clear to auscultation bilaterally. CARDIOVASCULAR: Regular rate and rhythm. No JVD. ABDOMEN: Soft, non-tender +bs EXTREMITIES: No edema. Non-tender. SKIN: No rashes or lesions. Warm. NEUROLOGIC: No focal neurological deficits. CN II-XII grossly intact PSYCHIATRIC: Cooperative. Appropriate mood and affect PFSH Surgical History H/O colonoscopy Family History Mother Diabetes Father Diabetes Brother Diabetes Sister Breast cancer Other HTN (hypertension) Heart disease Prostate cancer Stroke Social History Housing: Apartment Alcohol intake: former Cigarette Packs Per Day: 1 Years Smoked: 69 e-Cigarette/Vaping Use: Never Used Second Hand Smoke Exposure: No service: No Current occupational status: retired Cognitive needs: No Hearing needs: No Vision needs: Yes (glasses) Questionnaire Thrive Questionnaire Date Thrive assessed: 06/28/24 I am a: Patient What is your living situation today?: I have a steady place to live Within the past 12 months, did the food you bought not last and you didn't have the money to get more?: Never true Within the past 12 months, did you worry whether your food would run out before you got money to buy more?: Never true Do you have trouble paying for medicines?: No Do you have trouble getting transportation to medical appointments?: No Do you have trouble paying your heating and electricity bill?: No Do you have trouble taking care of your child, family member or friend?: No Do you have trouble with day-to-day activities such as bathing, preparing meals, shopping, managing finances, etc.?: I choose not to answer this question Are you currently unemployed and looking for a job?: No Are you interested in more education?: No Please select the resources that you would like help with: None Currently or been in a relationship where the following occur: No concerns reported THRIVE Score: 0 AUDIT C Alcohol Use Questionnaire (AUDIT-C) 1. How often do you have a drink containing alcohol?: Monthly or less 2. How many drinks containing alcohol do you have on a typical day when you are drinking?: 1 or 2 3. How often do you have six or more drinks on one occasion?: Never Total Score: 1 GABINO-7 AMB Questionnaire GABINO-7 Date GABINO - 7 assessed: 02/24/24 Source: Developed by Drs. Carlos Giraldo, Marj Velasquez, Diomedes Last and colleagues, with an educational carmine from [employer]. Physical exam (Primary Care) Vital Signs: Last Vital Signs Temp 98.1 F 01/04/25 09:29 Pulse 63 01/04/25 09:29 Resp 14 01/04/25 09:29 BP 114/70 01/04/25 09:29 Pulse Ox 98 01/04/25 09:29 Oxygen Delivery Method Room Air 01/04/25 09:29 BMI result Body Mass Index 17.3 Tobacco/Smoking Status: Tobacco use Status Tobacco use date assessed 01/04/25 01/04/25 09:34 Patient Tobacco Use Status 01/04/25 09:34 e-Cigarette/Vaping Use Never Used 01/04/25 09:34 Thrive Assessment: Date of Thrive Assessment Date Thrive assessed 06/28/24 01/04/25 09:34 Currently or been in a relationship where the following occur: No concerns reported Coding Level of Care Code Est Pt Level 4 (37606) Complex EM visit Add On G2211 Diagnoses Type 2 diabetes mellitus with diabetic polyneuropathy, without long-term current use of insulin E11.42 Diabetes mellitus senior care insulin use: without senior care use Diabetes mellitus complication status: with neurologic complications Diabetes mellitus complication detail: with polyneuropathy Prostate cancer C61 Chronic obstructive pulmonary disease, unspecified COPD type J44.9 COPD type: unspecified COPD Underweight (BMI < 18.5) R63.6; Z68.1 Assessment & Plan Assessment & Plan (1) Type 2 diabetes mellitus: Code(s): E11.9 - Type 2 diabetes mellitus without complications Category: Medical Qualifiers: Diabetes mellitus equipment operator intermodal yard insulin use: without equipment operator intermodal yard use Diabetes mellitus complication status: with neurologic complications Diabetes mellitus complication detail: with polyneuropathy Qualified Code(s): E11.42 - Type 2 diabetes mellitus with diabetic polyneuropathy (2) Prostate cancer: Comment: active surveillance. Caron Alejandro Code(s): C61 - Malignant neoplasm of prostate Category: Medical (3) COPD (chronic obstructive pulmonary disease): Code(s): J44.9 - Chronic obstructive pulmonary disease, unspecified Category: Medical Qualifiers: COPD type: unspecified COPD Qualified Code(s): J44.9 - Chronic obstructive pulmonary disease, unspecified (4) Underweight (BMI < 18.5): Code(s): R63.6 - Underweight; Z68.1 - Body mass index [BMI] 19.9 or less, adult Category: Medical Plan DM-improved control. Adequate for age. continue annual eye exams Prostate cancer-continues active surveillance HTN-blood pressure is controlled on current medication Underweight-declines remeron. colonoscopy utd Orders: Orders Comprehensive Met. Panel 3 Months C61 - Malignant neoplasm of prostate, D64.9 - Anemia, unspecified, E11.42 - Type 2 diabetes mellitus with diabetic polyneuropathy, J44.9 - Chronic obstructive pulmonary disease, unspecified, Z85.46 - Personal history of malignant neoplasm of prostate Hemoglobin A1c 3 Months C61 - Malignant neoplasm of prostate, D64.9 - Anemia, unspecified, E11.42 - Type 2 diabetes mellitus with diabetic polyneuropathy, J44.9 - Chronic obstructive pulmonary disease, unspecified, Z85.46 - Personal history of malignant neoplasm of prostate Lipid Panel 3 Months C61 - Malignant neoplasm of prostate, D64.9 - Anemia, unspecified, E11.42 - Type 2 diabetes mellitus with diabetic polyneuropathy, J44.9 - Chronic obstructive pulmonary disease, unspecified, Z85.46 - Personal history of malignant neoplasm of prostate
[2025-01-04 09:29] VITALS: BP 114/70; PULSE 63; RESP 14; TEMP 36.7; O2SAT 98; BMI 17.3
--- OUTSIDE RECORDS SUMMARY | 2025-01-04 09:55 | XMS_ITS | Clinical Summary ---
Author Organization [address] [place] [address] [place] [id number] Phone Care Team Providers Care Answering Service Agent Name Role Phone Xiomara Rodriguez MD Primary Care Provider [phone] Allergies Active Allergy Reactions Criticality Noted Date [...] initiation. Orders: Basic metabolic panel; Future Immunizations Immunization Administration Dates Next Due Influenza trivalent, 0.5mL [...] DX:Heart disease Diabetes mellitus, type 2 ([facility] [place] V24, [facility] V28) DX:Diabetes mellitus, type 2 (HCC) HTN (hypertension) DX:HTN (hyper tension) Stroke ([facility] V24, [facility] V28) DX:Stroke (HCC) Prostate cancer ([facility] V24 , [facility] V28) DX:Prostate cancer ([facility]); COMMENT: Dr. Pizarro Depression DX:Depression Anemia DX:Anemia Joint problem DX:Joint problem Type 2 diabetes mellitus wit h diabetic nephropathy ([facility] V24, [facility] V28) 01/30/2015 DX:Type 2 diabe nolvia mellitus with diabetic nephropathy ([facility]) Proteinuria 01/30/2015 DX:Proteinuria Tubular adenoma of colon [...] * Urine Albumin Creatinine Ratio (08/13/2021) Pathologist formerly [facility] Urine Albumin Creatinine Ratio Abstracted Historical Provider HEALTH MAINTENANCE Final Result * Annual BMP Blood Test (08/13/2021) Pathologist formerly [facility] Annual BMP Blood Test Abstracted Historical Provider HEALTH MAINTENANCE Final Result * (ABNORMAL) Hemoglobin A1c (08/13/2021) Pathologist [facility] Hemoglobin A1C 12.6(A) <=6.5 % Blood Venous blood specimen / Unknown Historical Provider LAB BLOOD ORDERABLES Missy l Result * (ABNORMAL) Lipid panel (08/13/2021) [facility] LDL/HDL Ratio 3 0 - 4 Triglycerides 209(A) 0 - 150 mg/dL Cholesterol 141 0 - 200 mg/dL HDL 46 >=40 mg/dL LDL Cholesterol 54 0 - 100 mg/dL Blood Venous blood specimen / Unknown Historical Provider LAB BLOOD ORDERABLES Missy l Result * Colonoscopy (09/03/2018) [facility] Colonoscopy Abstracted, No Interpretation Anatomical Region Laterality Modality Other [facility] Provider HEALTH MAINTENANCE Final Result * Hepatitis C Screening (04/11/2016) [facility] Hepatitis C Screening Abstracted [facility] Provider HEALTH MAINTENANCE Final Result from Last 3 Months or Most Recently Relevant to Health Maintenance Insurance [employer] Advance Directives Documents on File Type Date Recorded Patient Enhanced Environmental Operator Expl anation Health Care Decision (hx) 06/26/2017 [...] (hx) 06/26/2017 AD MARRERO DIRECTIVE Care Teams Answering Service Agent Relationship Specialty Start Date End Date Xiomara Rodriguez MD [address] [place], [place] [id number] PCP - General Internal Medicine 06/21/24
--- OUTSIDE RECORDS SUMMARY | 2025-01-04 09:56 | XMS_ITS | Patient Health Record ---
Author Organization [facility] Address [address] [place] [address] Care Team Providers Care Operating Room Surgical Technician Name Role Phone Xiomara Quintanilla MD Primary Care Provider Margarito Nguyen Unavailable [phone] Allergies No Known Allergies Results Component Value [...] Referring Provider Speciality Endocrinol ogy [facility] Mike Referred Provider Margarito Duffy Referred Address [address] [facility],[place], [place],[address], Referred Provider Specialty Podiatry Referral Priority Routine [...] Problem Acquired hammer toe of right foot ([id number] 105) Other hammer toe(s) (acquired), right foot (M20.41) Active confirmed Problem Type 2 diabetes mellitus with peripheral angiopathy (121657562) Type 2 diabetes mellitus with diabetic peripheral angiopathy without gangrene (E11.51) Active confirmed Q7(A), Q8(2B), Q9(1B,2C) Problem Acquired hammer toe of left foot ([id number] 103) Other hammer toe(s) (acquired), left foot (M20.42) Active confirmed Vital Signs Blood pressure diastolic 74 mm Hg 10/27/2024 Height 5ft 2.5in in 10/27/2024 Blood pressure systolic 144 mm Hg 10/27/2024 Weight 104 lbs 10/27/2024 BMI 18.72 kg/m2 10/27/2024 Procedures Procedure Date Ordered Date Performed Result Body Sit e 31979-NUNDRKV NAIL, 6 OR MORE 07/28/2024 N/A 47009-OIBA SKIN LESIONS, 2 TO 4 07/28/2024 N/A 48384-BRQYIXY NAIL, 6 OR MORE 10/27/2024 N/A 62137- I&D ABSCESS-COMPLICATED,MULTI 10/27/2024 N/A 82629-EVUB SKIN LESIONS, 2 TO 4 10/27/2024 N/A Encounters Encounter Location Date Provider Diagnosis [address] [address] 07/28/2024 Margarito Duffy Type 2 diabetes mellitus with diabetic peripheral angiopathy without gangrene E11.51 ; Other hammer toe(s) (acquired), right foot M20.41 ; Tinea unguium B35.1 ; Pain in right toe(s) M79.674 ; Pain in left toe(s) M79.675 and Other hammer toe(s) (acquired), left foot M20.[address] [address] 10/27/2024 Margarito Duffy Type 2 diabetes mellitus with diabetic peripheral angiopathy without gangrene E11.51 ; Tinea unguium B35.1 ; Pain in right toe(s) M79.674 ; Pain in left toe(s) M79.675 ; Abscess of toe of left foot L02.612 and Tinea pedis of both feet B35.[address] [facility] [address] 04/30/2024 [facility] [address] 07/07/2024 Margarito Duffy Assessments Encounter Date Diagnosis [...] Treatment Pending Test Test Name Order Date 08741-GLVLSBS NAIL, 6 OR MORE 07/28/2024 29150-ZKBBLBP NAIL, 6 OR MORE 10/27/2024 38694- I&D ABSCESS-COMPLICATED,MULTI 42160-NGCG SKIN LESIONS, 2 TO 4 10/28/19 25 61792-IONO SKIN LESIONS, 2 TO 4 07/29/19 25 Next Appt Details Provider Name:Margarito Duffy , 01/26/2025 02:45:00 PM, [address] [facility], [address], [place], [address], Insurance Providers Payer Name Payer Address Payer Phone Subscriber Number Group Number Insured Name Patient Relationship to Insured Coverage Start Date Coverage End Date [facility] [address] [place] [phone] [id number] Nico Bai Self - patient is the insured Medical (General) History Medical History History ICD Code Anemia Anxiety Asthma Back,Hip,and Knee pain Cancer Cataracts Diabetic Gall bladder problems Headaches/Migraines Heart disease High Blood Pressure Lung disease Numbness Reflux ( GERD) Sciatica sinusitis Hypercholesterolemia Surgical History Surgery Date(Month/Year) lump removal (head) stuck finger
== END 2025-01-04 09:56 | disposition home or self-care (01) ==
LOC: HO.HMCFM 09:11
PROVIDERS: PCP Internal Medicine; Visit Provider Internal Medicine
DX: E11.42 Type 2 diabetes mellitus with diabetic polyneuropathy (principal); C61 Malignant neoplasm of prostate; J44.9 Chronic obstructive pulmonary disease, unspecified; R63.6 Underweight; Z68.1 Body mass index [BMI] 19.9 or less, adult

== ENCOUNTER → 2025-01-04 09:11 | Outpatient (BNVA) | payer OTHER, SELFPAY | PROVIDERS: PCP Internal Medicine; Visit Provider Internal Medicine | DX: E11.42 Type 2 diabetes mellitus with diabetic polyneuropathy (principal); C61 Malignant neoplasm of prostate; J44.9 Chronic obstructive pulmonary disease, unspecified; R63.6 Underweight; Z68.1 Body mass index [BMI] 19.9 or less, adult | CPT/HCPCS: 99212 ==